=== PATIENT | female | born 1955 | race Caucasian/White ===

== ENCOUNTER → 2022-02-18 | Outpatient (CLI) | payer MEDICARE ==
--- NOTE | 2022-02-18 15:39 | Diagnostic Imaging Report ---
EXAMINATION: Left shoulder radiographs, 2 views. COMPARISON: Left shoulder radiographs February 07, 2022. HISTORY: 66-year-old female, followup left proximal humerus fracture. FINDINGS: There is a comminuted displaced left proximal humerus fracture which does include involvement of at least a tuberosity. There is no pronounced displacement of the fracture seen at the site of tuberosity involvement. The primary distal fracture fragment at the level of the humeral neck is displaced laterally by an estimated 7 mm. This is increasingly laterally displaced since the comparison study. The primary distal fracture fragment is also displaced anteriorly by an estimated 5 mm which also appears to be an interval change. There are mild acromioclavicular degenerative changes. The acromio clavicular joint is normally aligned. The humeral head is inferiorly subluxed. IMPRESSION: 1. Comminuted displaced left proximal humerus fracture involving the humeral neck and extending to at least involve one of the tuberosities. There is interval increased displacement of the primary distal fracture fragment at the level of the humeral neck. There is no bony callus bridging. 2. Mild acromioclavicular degenerative changes. Dictated by: Dictated on workstation # [id number]
== END ==
LOC: ORTHO 14:44
PROVIDERS: ATTEND Orthopaedic Surgery
DX: S42.202D Unspecified fracture of upper end of left humerus, subsequent encounter for fracture with routine healing (principal); S42.201D Unspecified fracture of upper end of right humerus, subsequent encounter for fracture with routine healing; M19.012 Primary osteoarthritis, left shoulder
CPT/HCPCS: 73030

== ENCOUNTER → 2022-02-27 | Outpatient (CLI) | payer MEDICARE ==
--- NOTE | 2022-02-27 18:10 | Diagnostic Imaging Report ---
INDICATION: Left shoulder fracture follow-up. EXAMINATION: AP and transscapular views of the left shoulder were obtained. COMPARISON: 02/18/2022. FINDINGS: Comminuted humeral head and neck fracture appears in stable alignment compared to the prior study. There is some early callus formation compatible with early healing. There is mild degenerative change of the AC joint. IMPRESSION: Stable alignment of the left humeral head and neck fracture with some early callus formation. Dictated by: Dictated on workstation # [id number]
== END ==
LOC: ORTHO 14:00
PROVIDERS: ATTEND Orthopaedic Surgery
DX: S42.202D Unspecified fracture of upper end of left humerus, subsequent encounter for fracture with routine healing (principal); X58.XXXD Exposure to other specified factors, subsequent encounter; E03.9 Hypothyroidism, unspecified
CPT/HCPCS: 73030; G0463; 99213

== ENCOUNTER → 2022-03-13 | Outpatient (CLI) | payer MEDICARE ==
--- NOTE | 2022-03-13 18:14 | Diagnostic Imaging Report ---
INDICATION: Humeral fracture AP and transscapular views of left shoulder are obtained. Since 02/27/2022, there may be slight increase in angulation of the comminuted subacute fracture at the junction of left humeral shaft and neck. There is exuberant callus formation. There is no dislocation at the glenohumeral joint. IMPRESSION: Slight increase in angulation of proximal humeral shaft fracture with prominent exuberant surrounding callus. Dictated by: Dictated on workstation # [id number]
== END ==
LOC: ORTHO 14:14
PROVIDERS: ATTEND Orthopaedic Surgery
DX: S42.202D Unspecified fracture of upper end of left humerus, subsequent encounter for fracture with routine healing (principal); X58.XXXD Exposure to other specified factors, subsequent encounter
CPT/HCPCS: 73030; 99213

== ENCOUNTER → 2022-04-01 | Outpatient (CLI) | payer MEDICARE | LOC: ORTHO 17:06 | PROVIDERS: ATTEND Orthopaedic Surgery | DX: S42.202D Unspecified fracture of upper end of left humerus, subsequent encounter for fracture with routine healing (principal); X58.XXXD Exposure to other specified factors, subsequent encounter | CPT/HCPCS: 99213 ==

== ENCOUNTER → 2022-04-21 | Outpatient (CLI) | payer MEDICARE ==
--- NOTE | 2022-04-24 14:02 | Diagnostic Imaging Report ---
PROCEDURE: CT left upper extremity without contrast. TECHNIQUE: Multiple contiguous axial images were obtained through the left upper extremity without the use of intravenous contrast. Auto Exposure Controls were utilized during the CT exam to meet ALARA standards for radiation dose reduction. INDICATION: Humerus fracture follow-up. COMPARISON: 04/14/2022 and 03/13/2022. FINDINGS: The surgical neck fracture in the proximal humerus maintains similar alignment with approximately 1 cm of impaction shaft into the femoral head. No interosseous bridging has developed. Periosteal callus has developed, but this is non-bridging as well. No intra-articular split fracture. The lesser tuberosity remains attached to the humeral head. The majority of the greater tuberosity is normal in appearance, although there may be a area of healed fracture along its posterior aspect. No glenohumeral joint effusion. No atrophy of the rotator cuff muscle bellies. Deltoid is normal bulk. AC joint is normal. Visualized aspects left lung are clear. IMPRESSION: 1. Stable alignment of the mildly impacted surgical neck fracture in the proximal humerus. There is increasing periosteal callus, however, there is no bridging callus present across the fracture. Dictated by: Dictated on workstation # [id number]
== END ==
LOC: RAD 11:45
PROVIDERS: ATTEND Orthopaedic Surgery
DX: S42.24 4-part fracture of surgical neck of humerus (principal); X58.XXXD Exposure to other specified factors, subsequent encounter

== ENCOUNTER → 2022-04-29 | Outpatient (CLI) | payer MEDICARE ==
--- NOTE | 2022-04-29 16:19 | Diagnostic Imaging Report ---
INDICATION: Follow-up fracture. COMPARISON: 03/27/2022 FINDINGS: 2 radiographic views of the left shoulder were obtained and again show nonacute partially healed fracture through the proximal left humerus near the surgical neck. There may be slight increased angulation when compared to previous radiograph dated 03/27/2022. There has however also been interval progression of partially bridging callus formation. Fracture lines remain conspicuous. No new acute osseous abnormality is seen. Joint spaces are maintained. Included portions of the left lung are clear. IMPRESSION: 1. Redemonstration of nonacute fracture of the proximal left humerus, as above. Dictated by: Dictated on workstation # [id number]
== END ==
LOC: ORTHO 12:37
PROVIDERS: ATTEND Orthopaedic Surgery
DX: S42.202D Unspecified fracture of upper end of left humerus, subsequent encounter for fracture with routine healing (principal); X58.XXXD Exposure to other specified factors, subsequent encounter
CPT/HCPCS: 73030; G0463; 99213

== ENCOUNTER → 2022-06-03 | Outpatient (CLI) | payer MEDICARE | LOC: ORTHO 14:06 | PROVIDERS: ATTEND Orthopaedic Surgery | DX: S42.302A Unspecified fracture of shaft of humerus, left arm, initial encounter for closed fracture (principal); X58.XXXA Exposure to other specified factors, initial encounter | CPT/HCPCS: 99213 ==

== ENCOUNTER → 2022-07-15 | Outpatient (CLI) | payer MEDICARE | LOC: ORTHO 13:42 | PROVIDERS: ATTEND Orthopaedic Surgery | DX: S42.202D Unspecified fracture of upper end of left humerus, subsequent encounter for fracture with routine healing (principal); K21.9 Gastro-esophageal reflux disease without esophagitis; E03.9 Hypothyroidism, unspecified; X58.XXXD Exposure to other specified factors, subsequent encounter | CPT/HCPCS: 99213 ==